=== PATIENT | female | born 1945 | race Caucasian/White ===

== ENCOUNTER 2017-02-07 11:38 | Inpatient (IN) | payer MEDICARE, OTHER ==
[2017-02-04 13:20] LABS: BASOPHILS 0.5 %; BASOPHILS ABSOLUTE 0.03 10/3/uL (0.0-0.16); EOSINOPHILS 2.2 %; EOSINOPHILS ABSOLUTE 0.14 10/3/uL (0.0-0.53); IMMATURE GRANULOCYTES 0.2 %; IMMATURE GRANULOCYTES ABSOLUTE 0.01 10/3/uL (0.0-0.11); LYMPHOCYTES 32.6 %; LYMPHOCYTES ABSOLUTE 2.12 10/3/uL (0.67-4.30); MEAN CORPUS HGB CONC 33.2 g/dL (32.0-36.0); MEAN CORPUSCULAR HEMOGLOB 27.4 pg (26.0-34.0); MEAN CORPUSCULAR VOLUME 82.6 fL (80-100); MEAN PLATELET VOLUME 10.3 fL (9.2-13.0); MONOCYTES 6.6 %; MONOCYTES ABSOLUTE 0.43 10/3/uL (0.21-1.20); NEUTROPHILS 57.9 %; NEUTROPHILS ABSOLUTE 3.78 10/3/uL (2.02-8.40); PLATELET COUNT 271 10/3/uL (150-400); RBC DISTRIBUTION WIDTH 13.4 % (12.0-16.0); RED CELL COUNT 5.11 10/6/uL (4.0-5.6); WHITE BLOOD CELLS 6.5 10/3/uL (4.5-10.5)
[2017-02-04 13:21] LABS: HEMATOCRIT 42.2 % (36.0-48.0); MANUAL DIFF NO %
[2017-02-04 13:26] LABS: PROTIME (NOT ORD) 13.3 SEC (12.0-14.5)
[2017-02-04 13:30] LABS: BUN (BLOOD UREA NITROGEN) 13 MG/DL (6-23); CALCIUM, SERUM 9.1 MG/DL (8.5-10.4); CHLORIDE, SERUM 106 MMOL/L (96-112); CO2 (CARBON DIOXIDE) 28 MMOL/L (24-34); GFR AFRICAN AMERICAN 87 ML/MIN (>=60); GFR NON AFRICAN AMERICAN 75 ML/MIN (>=60); GLUCOSE, SERUM 92 MG/DL (60-99); POTASSIUM, SERUM 3.7 MMOL/L (3.5-5.3); SODIUM, SERUM 142 MMOL/L (135-148)
--- NOTE | ~2017-02-07 | OP ---
Record Of Operation [facility] [address] [place]. [address] NAME: RAVIN PRIETO : 47 STATUS : ADM IN PAT#: [id number] AGE: 71 ADM/REG DATE : 02/07/17 MR#: [id number] REPORT SERV DATE: 02/07/17 DICTATED BY: OSMIN LÓPEZ JR. 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 NAMES OF OPERATIONS: Bronchoscopy; right thoracoscopy with right upper lobe anterior segmentectomy; complete mediastinal node dissection, philippe stations 4R, 7, 9; intercostal nerve block. RESIDENT SURGEON: Dr. Nicho Mckeon. COMMERCIAL ILLUSTRATOR: Justin Frazier. ANESTHESIA: General endotracheal. FINDINGS: The patient was noted to have a mass right in the peripheral aspect of the anterior portion of the right upper lobe. There was a very small less than 1 cm mass. We elected to do a segmentectomy as opposed to a true lobectomy given the small peripheral nature of the tumor. On frozen section this was confirmed to be a typical carcinoid tumor. I could not see an extra advantage in taking her whole right upper lobe. This tumor was in close proximity to the right middle lobe. It was also an up against the pericardium but was not invading the pericardium. It had a very indolent or benign appearance on gross examination as well as on the microscope. Her margins were approximately 1.5 cm away from the tumor. The nodes had a benign architecture to them also. They were sent for permanent analysis. Final pathology is pending. DETAILS OF OPERATION: After adequate general anesthesia, the patient was intubated. Bronchoscopy was performed noting no endobronchial lesions. A left-sided double-lumen endotracheal tube was then placed. The patient was then positioned in the left lateral decubitus position. The right chest was prepped and draped in routine sterile fashion. A small incision was made overlying the lower intercostal space. Through a single incision site, we used a single port approach to these identifying the tumor. It was very peripheral in its nature. The chest was explored. This again had findings clinically suspicious for a carcinoid tumor. It was very small. We elected to go ahead and do a segmentectomy. The anterior segment was then dissected out. The superior pulmonary vein was identified and dissected such that the branches to this segment were isolated. The majority of the pulmonary vein was preserved. The fissure was divided such that this area was isolated. It almost had the appearance of a right middle lobe. The middle lobe was near it but was separate. The tumor was not crossing the fissure. We then used multiple LEANNE staplers with tissue reinforcements to excise this area of lung tissue. The specimen was drawn through Record Of Operation [address] [address] NAME: RAVIN PRIETO : 47 STATUS : ADM IN [facility]#: [id number] AGE: 71 ADM/REG DATE : 02/07/17 MR#: [id number] REPORT SERV DATE: 02/07/17 DICTATED BY: OSMIN LÓPEZ JR. DATE: 02/07/17 REPORT STATUS : Draft TRANSCRIBED BY: BANDAR DATE: 02/07/17 the single trocar site. Frozen section confirmed that it was a typical carcinoid tumor. Nodes were then removed from the right paratracheal, subcarinal, inferior pulmonary ligament regions. An intercostal nerve block was performed. A 20-Bel[place]ian chest tube was placed. The lung was reinflated. Trocar site was closed with running Vicryl sutures. The skin was closed with running monofilament suture. A Dermabond dressing was applied. The procedure was terminated at this point. The patient tolerated the procedure well and back to recovery room in stable condition. GODWIN/BANDAR Osimn López Jr., M.D. / [id number] CC: Amish Harry Jr., M.D.
[~2017-02-07 11:38] MED LIST: ALEVE220 MG PO; ASAB PO; ASABAYER PO; FLAG500TAB PO; HALF81 PO; HYZAAR1 TAB PO; INDOCIN SR75 MG PO; K-TABS10 MEQ PO; LEVAQ250 PO; LIPITOR10 PO; NEXIUM20 M1 PO; NORCO1 TA1 PO; NORV5 PO; PRIN2.5 PO; PROTONIX PO
[2017-02-08 05:13] LABS: BASOPHILS 0 %; EOSINOPHILS 0 %; IMMATURE GRANULOCYTES 0.3 %; IMMATURE GRANULOCYTES ABSOLUTE 0.03 10/3/uL (0.0-0.11); LYMPHOCYTES 6.1 %; LYMPHOCYTES ABSOLUTE 0.67 10/3/uL (0.67-4.30); MEAN CORPUS HGB CONC 33.4 g/dL (32.0-36.0); MEAN CORPUSCULAR HEMOGLOB 27.7 pg (26.0-34.0); MEAN CORPUSCULAR VOLUME 82.9 fL (80-100); MEAN PLATELET VOLUME 10.4 fL (9.2-13.0); MONOCYTES 3.5 %; MONOCYTES ABSOLUTE 0.39 10/3/uL (0.21-1.20); NEUTROPHILS 90.1 %; NEUTROPHILS ABSOLUTE 9.92 10/3/uL (2.02-8.40); PLATELET COUNT 216 10/3/uL (150-400); RBC DISTRIBUTION WIDTH 13.5 % (12.0-16.0); RED CELL COUNT 4.33 10/6/uL (4.0-5.6)
[2017-02-08 05:14] LABS: HEMATOCRIT 35.9 % (36.0-48.0); MANUAL DIFF NO %
[2017-02-08 05:24] LABS: BUN (BLOOD UREA NITROGEN) 14 MG/DL (6-23); CALCIUM, SERUM 8.6 MG/DL (8.5-10.4); CHLORIDE, SERUM 106 MMOL/L (96-112); CREATININE 0.83 MG/DL (0.55-1.02); GFR AFRICAN AMERICAN 83 ML/MIN (>=60); GFR NON AFRICAN AMERICAN 71 ML/MIN (>=60); POTASSIUM, SERUM 3.4 MMOL/L (3.5-5.3); SODIUM, SERUM 138 MMOL/L (135-148)
[2017-02-08 05:26] LABS: CO2 (CARBON DIOXIDE) 23 MMOL/L (24-34); GLUCOSE, SERUM 189 MG/DL (60-99)
[2017-02-08] MEDS ORDERED: PCET PO (08:26)
== END 2017-02-08 13:02 | disposition home or self-care (01) | DRG 165 ==
LOC: SDC/OF 11:38 → 5NO 16:32
PROVIDERS: Thoracic Surgery (Cardiothoracic Vascular Surgery)
PROC: 07B74ZZ Excision of Thorax Lymphatic, Percutaneous Endoscopic Approach (ICD-10-PCS; 2017-02-07)
PROC: 3E0T3BZ Introduction of Anesthetic Agent into Peripheral Nerves and Plexi, Percutaneous Approach (ICD-10-PCS; 2017-02-07)
PROC: 0BJ08ZZ Inspection of Tracheobronchial Tree, Via Natural or Artificial Opening Endoscopic (ICD-10-PCS; 2017-02-07)
PROC: 0BBC4ZZ Excision of Right Upper Lung Lobe, Percutaneous Endoscopic Approach (ICD-10-PCS; principal; 2017-02-07 13:45)
DX: C7A.090 Malignant carcinoid tumor of the bronchus and lung (principal); I10 Essential (primary) hypertension; E78.5 Hyperlipidemia, unspecified; K21.9 Gastro-esophageal reflux disease without esophagitis; Z86.73 Personal history of transient ischemic attack (TIA), and cerebral infarction without residual deficits
CPT/HCPCS: 36415; 71020; 80048; 82962; 85025; 85610; 86850; 86900; 86901; 87641; 88305; 88307; 88331; 93005; 94640; A9270-GY; G0463; J0690; J1885; J2250; J2370; J2405; J2710; J2795; J3010